=== PATIENT | male | born 1945 | race Caucasian/White ===

== ENCOUNTER 2017-10-31 03:54 | Inpatient (IN) | payer MEDICARE, BC ==
[~2017-10-31] VITALS: Ht 182.9 cm; Wt 103.2 kg
[~2017-10-31 03:54] MED LIST: ATROPINE SYRINGE 0.1 MG/ML, 10ML ONE; EPINEPHRINE SYRINGE 0.1 MG/ML, 10ML ONE; SODIUM BICARB 8.4%, 50ML SYRINGE ONE
[2017-10-31] MEDS ORDERED: MIDAZOLAM 1 MG/ML, 2ML ONE ×2 (04:00→07:51)
[2017-10-31] MEDS ORDERED: FENTANYL PF 100 MCG/2ML ONE (04:01)
[2017-10-31] MEDS ORDERED: SODIUM CHLORIDE 0.9% 1,000ML IVBOLUS ONE ×2 (04:30→06:00)
[2017-10-31] MEDS ORDERED: MIDAZOLAM 1 MG/ML, 2ML IVPush ONE ×2 (04:30→08:00)
[2017-10-31] MEDS ORDERED: FENTANYL PF 100 MCG/2ML IV ONE (04:30)
[2017-10-31] MEDS ORDERED: NALOXONE 0.4 MG/ML, 1ML IVPush ONE ×2 (04:30→05:00)
[2017-10-31] MEDS ORDERED: SODIUM CHLORIDE FLUSH 10ML SYR IVF ONE (04:30)
[2017-10-31 05:13] LABS: INTERNATIONAL NORMALIZED RATIO 2.13 (0.93-1.1); PROTHROMBIN TIME 21.6 Seconds (9.6-11.5)
[2017-10-31 05:19] LABS: ALBUMIN 2.5 g/dL (3.4-5.0); ANION GAP 16 mmol/L (5-15); CALCIUM 8.2 mg/dL (8.5-10.1); CHLORIDE 106 mmol/L (98-107)
[2017-10-31 05:24] LABS: ALKALINE PHOSPHATASE 107 U/L (45-117); BILIRUBIN,TOTAL 2.5 mg/dL (0.2-1.0); CREATININE 1.91 mg/dL (0.7-1.3); TOTAL PROTEIN 5.8 g/dL (6.4-8.2)
[2017-10-31 05:27] LABS: TROPONIN I 0.149 ng/mL (0.000-0.045)
[2017-10-31] MEDS ORDERED: ASPIRIN 81 MG TABLET CHEW PO ONE (05:30)
[2017-10-31] MEDS ORDERED: ASPIRIN 81 MG TABLET CHEW ONE (05:30)
[2017-10-31 05:34] LABS: ALANINE AMINOTRANSFERASE 1405 U/L (12-78)
[2017-10-31 05:37] LABS: MEAN CORPUSCULAR HEMOGLOBIN 31.9 pg (27.5-34.5); MEAN CORPUSCULAR HGB CONC 32.8 g/dL (33.2-36.2); MEAN CORPUSCULAR VOLUME 97.1 fL (81-97); MEAN PLATELET VOLUME 11.5 fL (7.4-10.4); PLATELET COUNT 197 x10^3/uL (130-400); RED BLOOD COUNT 5.15 x10^6/uL (4.38-5.82); RED CELL DISTRIBUTION WIDTH 17.3 % (9.4-14.8)
[2017-10-31] MEDS: NOREPINEPHRINE 4 MG in SODIUM CHLORIDE 0.9% 246 ML IV PRN ×2 (05:45→08:43)
[2017-10-31] MEDS ORDERED: PIPERACILLIN/TAZO/PMX 3.375GM 50 ML ONE (05:48)
[2017-10-31] MEDS ORDERED: HEPARIN 5,000 UNITS/ML, 1ML ONE (05:53)
[2017-10-31] MEDS ORDERED: HEPARIN 25,000 UNITS/500ML PMX 500 ML ONE (05:53)
[2017-10-31 05:58] LABS: BASOPHILS # (AUTO) 0.04 x10^3/uL (0-0.1); BASOPHILS % (AUTO) 0 % (0-1); EOSINOPHILS # (AUTO) 0.01 x10^3/uL (0-0.4); EOSINOPHILS % (AUTO) 0 % (1-7); LYMPHOCYTES # (AUTO) 1.38 x10^3/uL (1-3.4); LYMPHOCYTES % (AUTO) 10 % (22-44); MD SCAN; MONOCYTES # (AUTO) 0.77 x10^3/uL (0.2-0.8); MONOCYTES % (AUTO) 5 % (2-9); NEUTROPHILS # (AUTO) 11.97 x10^3/uL (1.8-6.8); NEUTROPHILS % (AUTO) 84 % (42-75)
[2017-10-31] MEDS ORDERED: HEPARIN 5,000 UNITS/ML, 1ML IV ONE (06:00)
[2017-10-31] MEDS ORDERED: HEPARIN 25,000 UNITS/500ML PMX 500 ML IV PRN (06:00)
[2017-10-31] MEDS ORDERED: PIPERACILLIN/TAZO/PMX 3.375GM 50 ML IV ONE (06:00)
[2017-10-31] MEDS ORDERED: SODIUM CHLORIDE 0.9% 1,000 ML IV ONE (06:00)
[2017-10-31] MEDS ORDERED: HEPARIN 5,000 UNITS/ML, 1ML IV PRN (06:00)
[2017-10-31 06:15] LABS: ACETAMINOPHEN 5 mcg/mL (10-30); SALICYLATE LEVEL < 1.7 mg/dL (2.8-20.0)
[2017-10-31] MEDS ORDERED: CODE BLUE RESPONSE XX ONE (08:30)
[2017-10-31] MEDS ORDERED: EPINEPHRINE 2 MG in SODIUM CHLORIDE 0.9% 248 ML IV PRN (08:30)
[2017-10-31] MEDS ORDERED: SODIUM BICARB 8.4%, 50ML SYRINGE ONE (08:46)
[2017-10-31] MEDS ORDERED: EPINEPHRINE IV PRN (09:00)
[2017-10-31] MEDS ORDERED: SODIUM CHLORIDE 0.9% IV PRN (09:00)
[2017-10-31 09:15] VITALS: BP 140/114
== END 2017-10-31 09:35 | disposition expired | DRG 871 ==
LOC: ED 06:32 → EDIP 06:45 → CCU 09:14
PROVIDERS: ADMIT Internal Medicine; ATTEND Internal Medicine
PROC: 02HV33Z Insertion of Infusion Device into Superior Vena Cava, Percutaneous Approach (ICD-10-PCS; principal; 2017-10-31)
PROC: 5A1935Z Respiratory Ventilation, Less than 24 Consecutive Hours (ICD-10-PCS; 2017-10-31)
PROC: 0BH17EZ Insertion of Endotracheal Airway into Trachea, Via Natural or Artificial Opening (ICD-10-PCS; 2017-10-31)
PROC: 5A12012 Performance of Cardiac Output, Single, Manual (ICD-10-PCS; 2017-10-31)
PROC: 5A2204Z Restoration of Cardiac Rhythm, Single (ICD-10-PCS; 2017-10-31)
DX: A41.9 Sepsis, unspecified organism (principal); J96.01 Acute respiratory failure with hypoxia; R57.0 Cardiogenic shock; R65.21 Severe sepsis with septic shock; E87.2 Acidosis; N17.9 Acute kidney failure, unspecified; I48.91 Unspecified atrial fibrillation; E86.1 Hypovolemia; N28.1 Cyst of kidney, acquired; B17.9 Acute viral hepatitis, unspecified; J98.11 Atelectasis; F10.20 Alcohol dependence, uncomplicated; F41.9 Anxiety disorder, unspecified; I45.10 Unspecified right bundle-branch block; N50.819 Testicular pain, unspecified; M10.9 Gout, unspecified
CPT/HCPCS: 36415; 36600; 71045; 76700; 76870; 80053; 80307; 80329; 82803; 83605; 83690; 83735; 83880; 84145; 84484; 85025; 85520; 85610; 85730; 87040; 87070; 87205; 92950; 93005; 94002; J0171; J0461; J1644; J2250; J2310; J2543; J3010; G0480; J7030; J7040; J7050